=== PATIENT | female | born 1980 | race Caucasian/White ===

== ENCOUNTER 2024-02-11 11:45 | Emergency (ER) | payer OTHER ==
[~2024-02-11] VITALS: Ht 165.1 cm; Wt 54.4 kg
[2024-02-11] MEDS ORDERED: ONDANSETRON HCL/PF 4 MG/2 ML VIAL ONE (12:04)
[2024-02-11] MEDS ORDERED: MORPHINE SULFATE INJ 2 MG/ML DISP.SYRIN ONE (12:05)
[2024-02-11] MEDS: IV NS 0.9% 1,000 ML BAG IV ONE (12:16)
[2024-02-11] MEDS: MORPHINE SULFATE INJ 2 MG/ML DISP.SYRIN IV ONE (12:17)
[2024-02-11] MEDS: ONDANSETRON HCL/PF 4 MG/2 ML VIAL IVP ONE (12:17)
[2024-02-11 12:21] LABS: BASOPHILS # (AUTO) 0.1 K/uL (0.0-0.2); BASOPHILS % (AUTO) 1.2 % (0.0-2.0); EOSINOPHILS # (AUTO) 0.1 K/uL (0.0-0.7); EOSINOPHILS % (AUTO) 2.2 % (0.0-6.0); HEMATOCRIT 37 % (33-45); HEMOGLOBIN 12.2 g/dL (11.5-14.8); LYMPHOCYTES % (AUTO) 39.3 % (20.0-44.0); MEAN CORPUSCULAR HEMOGLOBIN 29 PG (26.0-33.0); MEAN CORPUSCULAR HGB CONC 33 g/dl (31.0-36.0); MEAN CORPUSCULAR VOLUME 88 fL (82-100); MONOCYTES # (AUTO) 0.3 K/uL (0.1-1.30); MONOCYTES % (AUTO) 5.5 % (2.0-12.0); NEUTROPHILS # (AUTO) 2.7 K/uL (1.8-8.9); NEUTROPHILS % (AUTO) 51.8 % (43.0-81.0); PLATELET COUNT (AUTO) 265 K/uL (150-450); RED BLOOD CELL COUNT(AUTO) 4.15 MIL/uL (4.0-5.2); RED CELL DISTRIBUTION WIDTH 14.2 % (11.5-15.0); WHITE BLOOD COUNT (AUTO) 5.2 K/uL (4.3-11.0)
[2024-02-11 12:31] LABS: APPEARANCE,URINE CLEAR (CLEAR); BILIRUBIN,URINE NEGATIVE (NEGATIVE); BLOOD, URINE NEGATIVE Ery/uL (NEGATIVE); COLOR,URINE YELLOW (YELLOW); KETONES,URINE NEGATIVE (NEGATIVE); LEUKOCYTE ESTERASE ,URINE NEGATIVE (NEGATIVE); NITRITE, URINE NEGATIVE (NEGATIVE); PH,URINE 6.5 (5.0-8.0); PROTEIN,URINE NEGATIVE (NEGATIVE); UGLUCOSE NEGATIVE (NEGATIVE); UROBILINOGEN,URINE 0.2 EU/dL (0.2)
[2024-02-11 12:35] LABS: PREGNANCY TEST URINE QUAL NEGATIVE (NEGATIVE)
[2024-02-11 12:38] LABS: ALBUMIN 4.2 g/dL (3.4-5.0); BILIRUBIN,DIRECT 0.1 mg/dL (0.0-0.2); BILIRUBIN,TOTAL 0.3 mg/dL (0.2-1.0); CALCIUM, SERUM 9.4 mg/dL (8.5-10.1); CREATININE 0.8 mg/dL (0.6-1.3); POTASSIUM 4.1 mmol/L (3.5-5.1); TOTAL PROTEIN, SERUM 8.1 g/dL (6.4-8.2)
[2024-02-11] MEDS ORDERED: IV NS 0.9% 250 ML IV ONE (12:49)
[2024-02-11] MEDS ORDERED: CT SWABBABLE VALVE TRANS SET 1 EA INFUS.SET MC ONE (12:49)
[2024-02-11] MEDS ORDERED: IOHEXOL-300 100 ML VIAL IV ONE (12:49)
[2024-02-11] MEDS ORDERED: IBUP-1490 PO (14:04)
[2024-02-11 14:20] VITALS: BP 129/71; TEMP 98.7; O2SAT 99
== END 2024-02-11 14:21 | disposition home or self-care (01) ==
LOC: ER 11:54
DX: K59.00 Constipation, unspecified (principal); R10.12 Left upper quadrant pain
CPT/HCPCS: 99285; 74177; 96374; 96361; 96375; 85025; 80048; 83690; 80076; 84703; 81003; 36415; J2405; J7030; J7050; J2270; Q9967